=== PATIENT | male | born 1990 | race Two or more races ===

== ENCOUNTER 2022-09-11 09:43 | Emergency (ER) | payer OTHER ==
[~2022-09-11] VITALS: Ht 162.6 cm; Wt 81.6 kg
== END 2022-09-11 17:07 | disposition home or self-care (01) ==
LOC: ER 09:43
DX: K52.9 Noninfective gastroenteritis and colitis, unspecified (principal)

== ENCOUNTER → 2023-02-04 | Emergency (ER) | payer OTHER ==
[~2023-02-04] VITALS: Ht 165.1 cm; Wt 83.9 kg
[~2023-02-04] MED LIST: CLARITIN-D 241 EACH PO; CLONAZEPAM0.125 MG; FLONASE ALLERG9.9 ML NASAL; TUSNEL DM LIQU473 ML PO
[2023-02-04 13:09] LABS: HEMATOCRIT 47.3 % (39.0-48.0); HEMOGLOBIN 16.5 g/dL (13-16.00); MEAN CELL VOLUME 87.5 fL (80.0-100.00); MEAN CORPUSCULAR HEMOGLOBIN 30.5 pg (27.00-32.0); MEAN CORPUSCULAR HGB CONC 34.9 g/dl (32.0-36.0); PLATELET COUNT 196 K/uL (150-450); RED BLOOD COUNT 5.41 M/uL (4.00-6.00); RED CELL DISTRIBUTION WIDTH 13.7 % (11.5-14.5)
[2023-02-04 13:23] LABS: ALBUMIN 4.1 gm/dL (3.4-5.0); BILIRUBIN TOTAL 0.71 mg/dL (0.3-1.2); CALCIUM 9.2 mg/dL (8.5-10.1); CREATININE SERUM 1.07 mg/dL (0.70-1.30); GFR 80.61; GLOBULINA 4.1 G/DL (2.4-3.5); POTASSIUM 3.96 mEq/L (3.5-5.1); TOTAL PROTEIN 8.2 gm/dL (6.4-8.2)
== END | disposition home or self-care (01) ==
LOC: ER 09:27
PROVIDERS: General Practice
DX: J10.1 Influenza due to other identified influenza virus with other respiratory manifestations (principal); Z20.822 Contact with and (suspected) exposure to COVID-19